=== PATIENT | male | born 1970 | race Caucasian/White ===

== ENCOUNTER 2018-06-08 10:15 | Inpatient (IN) | payer MEDICARE ==
[~2018-06-08] VITALS: Ht 167.6 cm; Wt 169.0 kg
[2018-06-08 12:00] VITALS: BP 141/81
[2018-06-08] MEDS ORDERED: OXYC80TA25 PO (12:08)
[2018-06-08] MEDS ORDERED: HYDR8TAB27 PO (12:08)
[2018-06-08] MEDS ORDERED: DIAZ10TA4 PO (12:09)
[2018-06-08] MEDS ORDERED: HYDROmorphone 2 MG/ML, 1ML ONE ×3 (12:25→19:41)
[2018-06-08] MEDS ORDERED: LABETALOL 5MG/ML, 20ML IVPush PRN (12:30)
[2018-06-08] MEDS ORDERED: BISACODYL 10 MG SUPP PR PRN (12:30)
[2018-06-08] MEDS ORDERED: BACLOFEN 10 MG TABLET PO PRN (12:30)
[2018-06-08] MEDS ORDERED: DOCUSATE 100 MG CAPSULE PO PRN (12:30)
[2018-06-08] MEDS ORDERED: POLYETHYLENE GLYCOL 17 GM PACKET PO PRN (12:30)
[2018-06-08] MEDS ORDERED: HYDROmorphone 1 MG/ML, 1ML IV ONE (12:30)
[2018-06-08] MEDS ORDERED: hydrALAzine 20 MG/ML, 1ML IVPush PRN (12:30)
[2018-06-08] MEDS: HYDROmorphone 2 MG/ML, 1ML IVPush PRN ×7 (12:30→20:01)
[2018-06-08] MEDS ORDERED: VANCOMYCIN PER PHARMACY MC PRN (13:00)
[2018-06-08 13:26] LABS: BASOPHILS # (AUTO) 0.03 x10^3/uL (0-0.1); BASOPHILS % (AUTO) 1 % (0-1); EOSINOPHILS # (AUTO) 0.02 x10^3/uL (0-0.4); EOSINOPHILS % (AUTO) 0 % (1-7); LYMPHOCYTES # (AUTO) 1.26 x10^3/uL (1-3.4); LYMPHOCYTES % (AUTO) 26 % (22-44); MD NO; MEAN CORPUSCULAR HEMOGLOBIN 30.4 pg (27.5-34.5); MEAN CORPUSCULAR HGB CONC 34.7 g/dL (33.2-36.2); MEAN CORPUSCULAR VOLUME 87.7 fL (81-97); MEAN PLATELET VOLUME 8.2 fL (7.4-10.4); MONOCYTES % (AUTO) 11 % (2-9); NEUTROPHILS # (AUTO) 2.97 x10^3/uL (1.8-6.8); NEUTROPHILS % (AUTO) 62 % (42-75); PLATELET COUNT 178 x10^3/uL (130-400); RED BLOOD COUNT 4.45 x10^6/uL (4.38-5.82); RED CELL DISTRIBUTION WIDTH 13.1 % (9.4-14.8)
[2018-06-08] MEDS ORDERED: PHARMACOKINETIC MONITORING MC PRN (13:30)
[2018-06-08] MEDS ORDERED: PHARMACOKINETIC CONSULTATION MC ONE (13:30)
[2018-06-08 13:37] LABS: INTERNATIONAL NORMALIZED RATIO 1.05 (0.93-1.1); PROTHROMBIN TIME 11.1 Seconds (9.6-11.5)
[2018-06-08 13:39] LABS: ANION GAP 10 mmol/L (5-15); CHLORIDE 105 mmol/L (98-107); CREATININE 0.73 mg/dL (0.7-1.3)
[2018-06-08 13:48] LABS: THYROID STIMULATING HORMONE 0.854 mIU/L (0.358-3.740)
[2018-06-08] MEDS: SODIUM CHLORIDE 0.9% 1,000 ML IV SCH (13:54)
[2018-06-08] MEDS: PIPERACILLIN/TAZO/PMX 3.375GM 50 ML IV SCH ×2 (15:21→23:22)
[2018-06-08] MEDS: VANCOMYCIN 1,500 MG in SODIUM CHLORIDE 0.9% 250 ML IV SCH (16:15)
[2018-06-08] MEDS ORDERED: HYDROmorphone PCA 30 MG/30 ML IV PRN ×3 (17:00→21:00)
[2018-06-08] MEDS ORDERED: FENTANYL PF 250 MCG/5ML ONE ×2 (17:02→19:19)
[2018-06-08] MEDS ORDERED: METOCLOPRAMIDE 5 MG/ML, 2ML ONE (17:40)
[2018-06-08] MEDS ORDERED: hydrALAzine 20 MG/ML, 1ML IV PRN (18:30)
[2018-06-08] MEDS ORDERED: DIAZEPAM 5 MG/ML, 2ML IVPush PRN (18:30)
[2018-06-08] MEDS ORDERED: LORazepam 2 MG/ML, 1ML IVPush PRN (18:30)
[2018-06-08] MEDS ORDERED: LABETALOL 5MG/ML, 20ML IV PRN (18:30)
[2018-06-08] MEDS ORDERED: OXYcodone 5 MG/5 ML ORAL.SOL UDC PO PRN (18:30)
[2018-06-08] MEDS ORDERED: ONDANSETRON 2MG/ML, 2ML IV PRN (18:30)
[2018-06-08] MEDS ORDERED: PROMETHAZINE 25 MG/ML, 1ML IM PRN (18:30)
[2018-06-08] MEDS ORDERED: MEPERIDINE/PF 25MG/0.5ML IVPush PRN (18:30)
[2018-06-08] MEDS ORDERED: PROPOFOL 10 MG/ML, 20ML ONE (18:49)
[2018-06-08] MEDS ORDERED: ROCURONIUM 10MG/ML,5ML ONE (18:49)
[2018-06-08] MEDS ORDERED: PHENYLEPHRINE 10 MG/ML ONE (18:49)
[2018-06-08] MEDS ORDERED: ONDANSETRON 2MG/ML, 2ML ONE (18:49)
[2018-06-08 18:54] LABS: HEMOGLOBIN A1C 5.2 % (4.2-6.3)
[2018-06-08] MEDS ORDERED: FENTANYL PF 100 MCG/2ML ONE ×2 (19:41→20:02)
[2018-06-08] MEDS ORDERED: OXYcodone 5 MG/5 ML ORAL.SOL UDC ONE (19:42)
[2018-06-08] MEDS: FENTANYL PF 100 MCG/2ML IV PRN ×3 (19:46→20:04)
[2018-06-08] MEDS ORDERED: LORazepam 2 MG/ML, 1ML ONE (19:56)
[2018-06-08 21:15] VITALS: BP 104/79
[2018-06-08] MEDS: GABAPENTIN 300 MG CAPSULE PO PRN (21:33)
[2018-06-09 00:17] VITALS: BP 119/50
[2018-06-09 03:26] VITALS: BP 125/54
[2018-06-09] MEDS: PIPERACILLIN/TAZO/PMX 3.375GM 50 ML IV SCH ×4 (04:32→23:08)
[2018-06-09] MEDS: SODIUM CHLORIDE 0.9% 1,000 ML IV SCH ×2 (04:32→17:00)
[2018-06-09 05:59] LABS: BASOPHILS # (AUTO) 0.06 x10^3/uL (0-0.1); BASOPHILS % (AUTO) 1 % (0-1); EOSINOPHILS # (AUTO) 0.05 x10^3/uL (0-0.4); EOSINOPHILS % (AUTO) 1 % (1-7); LYMPHOCYTES # (AUTO) 1.04 x10^3/uL (1-3.4); LYMPHOCYTES % (AUTO) 19 % (22-44); MD NO; MEAN CORPUSCULAR HEMOGLOBIN 30.3 pg (27.5-34.5); MEAN CORPUSCULAR HGB CONC 34.5 g/dL (33.2-36.2); MEAN CORPUSCULAR VOLUME 87.7 fL (81-97); MEAN PLATELET VOLUME 7.9 fL (7.4-10.4); MONOCYTES # (AUTO) 0.28 x10^3/uL (0.2-0.8); MONOCYTES % (AUTO) 5 % (2-9); NEUTROPHILS # (AUTO) 4.13 x10^3/uL (1.8-6.8); NEUTROPHILS % (AUTO) 74 % (42-75); PLATELET COUNT 148 x10^3/uL (130-400); RED BLOOD COUNT 4.01 x10^6/uL (4.38-5.82); RED CELL DISTRIBUTION WIDTH 13.6 % (9.4-14.8)
[2018-06-09 06:10] LABS: ANION GAP 11 mmol/L (5-15); CHLORIDE 105 mmol/L (98-107)
[2018-06-09 06:13] LABS: CALCIUM 7.3 mg/dL (8.5-10.1); CREATININE 0.71 mg/dL (0.7-1.3)
[2018-06-09] MEDS: VANCOMYCIN 1,500 MG in SODIUM CHLORIDE 0.9% 250 ML IV SCH (07:43)
[2018-06-09] MEDS: HEPARIN 5,000 UNITS/ML, 1ML SQ SCH ×2 (09:42→17:55)
[2018-06-09 10:26] VITALS: BP 90/61
[2018-06-09 12:58] LABS: CULTURE INDICATED? NO; MICROSCOPIC NOT IND
[2018-06-09 14:28] VITALS: BP 100/63
[2018-06-09] MEDS ORDERED: DIAZEPAM 5 MG TABLET ONE (14:59)
[2018-06-09] MEDS: DIAZEPAM 10 MG TABLET PO PRN (15:00)
[2018-06-09] MEDS ORDERED: HYDROmorphone 2MG TABLET PO PRN (18:00)
[2018-06-09] MEDS: HYDROmorphone 2MG TABLET PO SCH (18:23)
[2018-06-09 19:21] VITALS: BP 110/72
[2018-06-09] MEDS ORDERED: OxyconTIN ER 40 MG TAB.ER PO SCH (21:00)
[2018-06-09] MEDS ORDERED: HYDROmorphone 4MG TABLET PO SCH ×2 (21:00)
[2018-06-09] MEDS ORDERED: OxyconTIN ER 20 MG TAB.ER ONE (21:06)
[2018-06-09] MEDS: OxyconTIN ER 40 MG TAB.ER PO SCH (21:10)
[2018-06-09] MEDS: ACETAMINOPHEN 325 MG TABLET PO PRN (23:07)
[2018-06-09] MEDS: HYDROmorphone 2 MG/ML, 1ML IVPush PRN (23:07)
[2018-06-10 00:13] VITALS: BP 97/56
[2018-06-10] MEDS: VANCOMYCIN 1,500 MG in SODIUM CHLORIDE 0.9% 250 ML IV SCH (01:38)
[2018-06-10] MEDS: SODIUM CHLORIDE 0.9% 1,000 ML IV SCH ×3 (01:38→17:00)
[2018-06-10] MEDS: HEPARIN 5,000 UNITS/ML, 1ML SQ SCH ×3 (01:39→17:35)
[2018-06-10] MEDS ORDERED: DIAZEPAM 5 MG TABLET ONE ×3 (04:11→19:50)
[2018-06-10] MEDS: DIAZEPAM 10 MG TABLET PO PRN ×2 (04:13→19:52)
[2018-06-10] MEDS ORDERED: OxyconTIN ER 20 MG TAB.ER ONE (04:47)
[2018-06-10] MEDS: PIPERACILLIN/TAZO/PMX 3.375GM 50 ML IV SCH ×4 (04:48→22:48)
[2018-06-10] MEDS: OxyconTIN ER 40 MG TAB.ER PO SCH (04:49)
[2018-06-10] MEDS: HYDROmorphone 2 MG/ML, 1ML IVPush PRN ×2 (04:53→05:30)
[2018-06-10 05:33] LABS: ALBUMIN 2.9 g/dL (3.4-5.0); ANION GAP 9 mmol/L (5-15); CALCIUM 7.5 mg/dL (8.5-10.1); CHLORIDE 107 mmol/L (98-107); CREATININE 0.82 mg/dL (0.7-1.3)
[2018-06-10] MEDS: HYDROmorphone 2MG TABLET PO SCH (06:11)
[2018-06-10] MEDS ORDERED: POTASSIUM CHLORIDE 10% 20 MEQ/15 ML UDC PO ONE (07:00)
[2018-06-10] MEDS ORDERED: POTASSIUM CHLORIDE 20 MEQ TAB.ER.PRT ONE (08:18)
[2018-06-10 08:39] VITALS: BP 102/70
[2018-06-10] MEDS ORDERED: HYDROmorphone 2 MG/ML, 1ML IV ONE ×2 (09:30→12:00)
[2018-06-10] MEDS ORDERED: HYDROmorphone PCA 30 MG/30 ML IV PRN ×2 (10:30→14:50)
[2018-06-10] MEDS ORDERED: DIAZEPAM 5 MG TABLET PO ONE (12:00)
[2018-06-10] MEDS: VANCOMYCIN 1,200 MG in SODIUM CHLORIDE 0.9% 250 ML IV SCH (13:16)
[2018-06-10 19:25] VITALS: BP 99/63
[2018-06-11] MEDS: SODIUM CHLORIDE 0.9% 1,000 ML IV SCH ×3 (00:58→21:58)
[2018-06-11] MEDS: VANCOMYCIN 1,200 MG in SODIUM CHLORIDE 0.9% 250 ML IV SCH (00:58)
[2018-06-11] MEDS: HEPARIN 5,000 UNITS/ML, 1ML SQ SCH ×3 (00:58→17:25)
[2018-06-11 02:00] VITALS: BP 99/66
[2018-06-11] MEDS: PIPERACILLIN/TAZO/PMX 3.375GM 50 ML IV SCH ×4 (04:54→21:24)
[2018-06-11 05:27] LABS: ALBUMIN 2.5 g/dL (3.4-5.0); ANION GAP 6 mmol/L (5-15); CALCIUM 7.1 mg/dL (8.5-10.1); CHLORIDE 108 mmol/L (98-107)
[2018-06-11 05:28] LABS: CREATININE 0.61 mg/dL (0.7-1.3)
[2018-06-11 05:31] LABS: BASOPHILS # (AUTO) 0.03 x10^3/uL (0-0.1); BASOPHILS % (AUTO) 1 % (0-1); EOSINOPHILS # (AUTO) 0.14 x10^3/uL (0-0.4); EOSINOPHILS % (AUTO) 3 % (1-7); LYMPHOCYTES % (AUTO) 26 % (22-44); MD NO; MEAN CORPUSCULAR HEMOGLOBIN 30.6 pg (27.5-34.5); MEAN CORPUSCULAR HGB CONC 34.5 g/dL (33.2-36.2); MEAN CORPUSCULAR VOLUME 88.6 fL (81-97); MEAN PLATELET VOLUME 8.3 fL (7.4-10.4); MONOCYTES # (AUTO) 0.42 x10^3/uL (0.2-0.8); MONOCYTES % (AUTO) 9 % (2-9); NEUTROPHILS # (AUTO) 2.84 x10^3/uL (1.8-6.8); NEUTROPHILS % (AUTO) 61 % (42-75); PLATELET COUNT 135 x10^3/uL (130-400); RED BLOOD COUNT 3.48 x10^6/uL (4.38-5.82); RED CELL DISTRIBUTION WIDTH 13.2 % (9.4-14.8)
[2018-06-11] MEDS ORDERED: POTASSIUM CHLORIDE 10% 40 MEQ/30 ML UDC PO ONE (06:30)
[2018-06-11 07:34] VITALS: BP 99/64
[2018-06-11 12:48] VITALS: BP 102/66
[2018-06-11] MEDS ORDERED: DIAZEPAM 5 MG TABLET ONE ×2 (13:38→21:56)
[2018-06-11] MEDS: DIAZEPAM 10 MG TABLET PO PRN ×2 (13:40→21:57)
[2018-06-11] MEDS: DAPTOMYCIN 450 MG in SODIUM CHLORIDE 0.9% 100 ML IVPB SCH (14:11)
[2018-06-11] MEDS: LACTULOSE 20 GM/30 ML UDC PO SCH ×2 (21:00→21:25)
[2018-06-11 21:18] VITALS: BP 93/58
[2018-06-11] MEDS: ACETAMINOPHEN 325 MG TABLET PO PRN (21:57)
[2018-06-12] MEDS: HEPARIN 5,000 UNITS/ML, 1ML SQ SCH ×3 (02:03→18:35)
[2018-06-12 02:07] VITALS: BP 94/50
[2018-06-12] MEDS: ACETAMINOPHEN 325 MG TABLET PO PRN ×2 (04:22→19:46)
[2018-06-12] MEDS: PIPERACILLIN/TAZO/PMX 3.375GM 50 ML IV SCH ×4 (04:38→22:51)
[2018-06-12 05:09] LABS: BASOPHILS # (AUTO) 0.02 x10^3/uL (0-0.1); BASOPHILS % (AUTO) 0 % (0-1); EOSINOPHILS # (AUTO) 0.18 x10^3/uL (0-0.4); EOSINOPHILS % (AUTO) 4 % (1-7); LYMPHOCYTES # (AUTO) 1.35 x10^3/uL (1-3.4); LYMPHOCYTES % (AUTO) 30 % (22-44); MD NO; MEAN CORPUSCULAR HEMOGLOBIN 30.5 pg (27.5-34.5); MEAN CORPUSCULAR HGB CONC 34.5 g/dL (33.2-36.2); MEAN CORPUSCULAR VOLUME 88.4 fL (81-97); MEAN PLATELET VOLUME 8.6 fL (7.4-10.4); MONOCYTES # (AUTO) 0.33 x10^3/uL (0.2-0.8); MONOCYTES % (AUTO) 7 % (2-9); NEUTROPHILS # (AUTO) 2.66 x10^3/uL (1.8-6.8); NEUTROPHILS % (AUTO) 59 % (42-75); PLATELET COUNT 158 x10^3/uL (130-400); RED BLOOD COUNT 3.53 x10^6/uL (4.38-5.82); RED CELL DISTRIBUTION WIDTH 13.6 % (9.4-14.8)
[2018-06-12 05:14] LABS: ALBUMIN 2.6 g/dL (3.4-5.0); ANION GAP 8 mmol/L (5-15); CALCIUM 7.7 mg/dL (8.5-10.1); CHLORIDE 110 mmol/L (98-107)
[2018-06-12 05:21] LABS: ALANINE AMINOTRANSFERASE 42 U/L (12-78); ALKALINE PHOSPHATASE 107 U/L (45-117); BILIRUBIN,TOTAL 0.5 mg/dL (0.2-1.0); CREATINE KINASE, TOTAL 195 U/L (39-308); CREATININE 0.58 mg/dL (0.7-1.3); TOTAL PROTEIN 5.9 g/dL (6.4-8.2)
[2018-06-12 05:39] LABS: HCT (SEDRATE) 31.2 % (39.2-51.8)
[2018-06-12] MEDS: SODIUM CHLORIDE 0.9% 1,000 ML IV SCH ×2 (06:27→13:37)
[2018-06-12 07:09] VITALS: BP 105/61
[2018-06-12] MEDS: LACTULOSE 20 GM/30 ML UDC PO SCH ×3 (09:00→21:00)
[2018-06-12] MEDS ORDERED: DIAZEPAM 5 MG TABLET ONE ×2 (09:31→21:37)
[2018-06-12] MEDS: DIAZEPAM 10 MG TABLET PO PRN ×2 (10:56→21:40)
[2018-06-12] MEDS: DAPTOMYCIN 450 MG in SODIUM CHLORIDE 0.9% 100 ML IVPB SCH (13:35)
[2018-06-12 13:42] VITALS: BP 121/68
[2018-06-12 18:42] VITALS: BP 100/50
[2018-06-13] MEDS: HEPARIN 5,000 UNITS/ML, 1ML SQ SCH ×3 (03:00→18:14)
[2018-06-13 03:11] VITALS: BP 95/53
[2018-06-13] MEDS: GABAPENTIN 300 MG CAPSULE PO PRN (04:32)
[2018-06-13] MEDS: PIPERACILLIN/TAZO/PMX 3.375GM 50 ML IV SCH (05:15)
[2018-06-13 06:02] LABS: ANION GAP 6 mmol/L (5-15); CALCIUM 7.7 mg/dL (8.5-10.1); CHLORIDE 110 mmol/L (98-107)
[2018-06-13 06:07] LABS: BASOPHILS # (AUTO) 0.01 x10^3/uL (0-0.1); BASOPHILS % (AUTO) 0 % (0-1); EOSINOPHILS # (AUTO) 0.08 x10^3/uL (0-0.4); EOSINOPHILS % (AUTO) 3 % (1-7); LYMPHOCYTES # (AUTO) 0.91 x10^3/uL (1-3.4); LYMPHOCYTES % (AUTO) 30 % (22-44); MD NO; MEAN CORPUSCULAR VOLUME 88.4 fL (81-97); MEAN PLATELET VOLUME 8.3 fL (7.4-10.4); MONOCYTES # (AUTO) 0.29 x10^3/uL (0.2-0.8); MONOCYTES % (AUTO) 10 % (2-9); NEUTROPHILS # (AUTO) 1.78 x10^3/uL (1.8-6.8); NEUTROPHILS % (AUTO) 58 % (42-75); PLATELET COUNT 213 x10^3/uL (130-400); RED BLOOD COUNT 3.28 x10^6/uL (4.38-5.82); RED CELL DISTRIBUTION WIDTH 13.6 % (9.4-14.8)
[2018-06-13 06:19] VITALS: BP 107/65
[2018-06-13] MEDS: LACTULOSE 20 GM/30 ML UDC PO SCH ×2 (08:15→21:00)
[2018-06-13] MEDS: ERTAPENEM 1 GM in SODIUM CHLORIDE 0.9% 50 ML IV SCH (10:45)
[2018-06-13 12:01] VITALS: BP 93/56
[2018-06-13] MEDS: DAPTOMYCIN 450 MG in SODIUM CHLORIDE 0.9% 100 ML IVPB SCH (13:55)
[2018-06-13] MEDS: HYDROmorphone 2MG TABLET PO SCH (15:27)
[2018-06-13] MEDS ORDERED: OxyconTIN ER 20 MG TAB.ER ONE ×2 (16:04→20:55)
[2018-06-13] MEDS: OxyconTIN ER 40 MG TAB.ER PO SCH ×2 (16:06→20:59)
[2018-06-13] MEDS ORDERED: DIAZEPAM 5 MG TABLET ONE (18:21)
[2018-06-13] MEDS: OXYcodone IR 30 MG TABLET PO PRN (18:24)
[2018-06-13] MEDS: HYDROmorphone 2 MG/ML, 1ML IVPush PRN ×2 (18:24→21:43)
[2018-06-13] MEDS: DIAZEPAM 10 MG TABLET PO PRN (18:24)
[2018-06-13] MEDS ORDERED: OxyconTIN ER 40 MG TAB.ER PO SCH (21:00)
[2018-06-13 21:10] VITALS: BP 137/41
[2018-06-14] MEDS ORDERED: DIAZEPAM 5 MG TABLET ONE ×3 (00:23→18:25)
[2018-06-14] MEDS: HYDROmorphone 2MG TABLET PO SCH ×3 (00:26→23:07)
[2018-06-14] MEDS: DIAZEPAM 10 MG TABLET PO PRN ×2 (00:26→18:26)
[2018-06-14] MEDS ORDERED: FAMOTIDINE 20 MG TABLET ONE (00:37)
[2018-06-14] MEDS: FAMOTIDINE 20 MG TABLET PO SCH ×3 (00:41→23:06)
[2018-06-14] MEDS ORDERED: CALCIUM CARBONATE 500 MG TAB.CHEW PO PRN (01:00)
[2018-06-14] MEDS ORDERED: OXYcodone IR 5MG TABLET ONE (01:51)
[2018-06-14] MEDS: HEPARIN 5,000 UNITS/ML, 1ML SQ SCH ×3 (01:55→18:22)
[2018-06-14] MEDS: HYDROmorphone 2 MG/ML, 1ML IVPush PRN ×6 (01:55→19:40)
[2018-06-14] MEDS: OXYcodone IR 30 MG TABLET PO PRN (01:56)
[2018-06-14 04:30] VITALS: BP 121/52
[2018-06-14] MEDS ORDERED: OxyconTIN ER 20 MG TAB.ER ONE ×3 (05:01→23:01)
[2018-06-14] MEDS: OxyconTIN ER 40 MG TAB.ER PO SCH ×4 (05:05→22:00)
[2018-06-14 08:00] VITALS: BP 91/47
[2018-06-14] MEDS ORDERED: POTASSIUM CHLORIDE 20 MEQ TAB.ER.PRT PO ONE (08:30)
[2018-06-14] MEDS: LACTULOSE 20 GM/30 ML UDC PO SCH ×3 (09:00→23:06)
[2018-06-14] MEDS: ERTAPENEM 1 GM in SODIUM CHLORIDE 0.9% 50 ML IV SCH (10:59)
[2018-06-14] MEDS: ACETAMINOPHEN 325 MG TABLET PO PRN (12:51)
[2018-06-14 13:48] VITALS: BP 96/58
[2018-06-14] MEDS: DAPTOMYCIN 450 MG in SODIUM CHLORIDE 0.9% 100 ML IVPB SCH (14:12)
[2018-06-14 19:50] VITALS: BP 91/52
[2018-06-15] MEDS: HYDROmorphone 2 MG/ML, 1ML IVPush PRN ×5 (00:57→22:06)
[2018-06-15 01:15] VITALS: BP 125/75
[2018-06-15] MEDS ORDERED: DIAZEPAM 5 MG TABLET ONE ×2 (05:22→18:45)
[2018-06-15] MEDS ORDERED: OxyconTIN ER 20 MG TAB.ER ONE ×3 (05:22→22:02)
[2018-06-15] MEDS: OxyconTIN ER 40 MG TAB.ER PO SCH ×3 (05:28→22:05)
[2018-06-15] MEDS: DIAZEPAM 10 MG TABLET PO PRN ×2 (05:28→18:48)
[2018-06-15 07:24] LABS: ANION GAP 4 mmol/L (5-15); CHLORIDE 110 mmol/L (98-107); CREATININE 0.64 mg/dL (0.7-1.3)
[2018-06-15 07:31] LABS: BASOPHILS # (AUTO) 0.03 x10^3/uL (0-0.1); BASOPHILS % (AUTO) 1 % (0-1); EOSINOPHILS # (AUTO) 0.05 x10^3/uL (0-0.4); EOSINOPHILS % (AUTO) 1 % (1-7); LYMPHOCYTES # (AUTO) 1.51 x10^3/uL (1-3.4); LYMPHOCYTES % (AUTO) 39 % (22-44); MD NO; MEAN CORPUSCULAR HEMOGLOBIN 30.5 pg (27.5-34.5); MEAN CORPUSCULAR HGB CONC 34.6 g/dL (33.2-36.2); MEAN CORPUSCULAR VOLUME 87.9 fL (81-97); MEAN PLATELET VOLUME 7.4 fL (7.4-10.4); MONOCYTES # (AUTO) 0.42 x10^3/uL (0.2-0.8); MONOCYTES % (AUTO) 11 % (2-9); NEUTROPHILS # (AUTO) 1.91 x10^3/uL (1.8-6.8); NEUTROPHILS % (AUTO) 49 % (42-75); PLATELET COUNT 343 x10^3/uL (130-400); RED CELL DISTRIBUTION WIDTH 13.9 % (9.4-14.8)
[2018-06-15 08:00] VITALS: BP 122/61
[2018-06-15] MEDS: HYDROmorphone 2MG TABLET PO SCH ×2 (08:47→22:06)
[2018-06-15] MEDS: HEPARIN 5,000 UNITS/ML, 1ML SQ SCH ×3 (08:47→15:43)
[2018-06-15] MEDS: LACTULOSE 20 GM/30 ML UDC PO SCH ×3 (08:47→21:00)
[2018-06-15] MEDS: FAMOTIDINE 20 MG TABLET PO SCH ×2 (08:47→22:06)
[2018-06-15] MEDS: ERTAPENEM 1 GM in SODIUM CHLORIDE 0.9% 50 ML IV SCH (11:00)
[2018-06-15] MEDS: LACTOBACILLUS CHEW TABLET PO SCH ×2 (11:42→22:05)
[2018-06-15] MEDS: DAPTOMYCIN 450 MG in SODIUM CHLORIDE 0.9% 100 ML IVPB SCH (13:56)
[2018-06-15 15:31] VITALS: BP 126/72
[2018-06-15 18:46] VITALS: BP 95/60
[2018-06-15] MEDS: OXYcodone IR 30 MG TABLET PO PRN (18:48)
[2018-06-16 01:13] VITALS: BP 99/61
[2018-06-16] MEDS: OXYcodone IR 30 MG TABLET PO PRN ×3 (01:24→23:18)
[2018-06-16] MEDS: OxyconTIN ER 40 MG TAB.ER PO SCH ×3 (06:00→21:22)
[2018-06-16] MEDS ORDERED: OxyconTIN ER 20 MG TAB.ER ONE ×3 (06:09→21:19)
[2018-06-16] MEDS: HYDROmorphone 2 MG/ML, 1ML IVPush PRN ×3 (06:13→21:22)
[2018-06-16 06:29] VITALS: BP 90/58
[2018-06-16] MEDS: LACTULOSE 20 GM/30 ML UDC PO SCH ×2 (09:10→19:39)
[2018-06-16] MEDS: FAMOTIDINE 20 MG TABLET PO SCH ×2 (09:10→21:23)
[2018-06-16] MEDS: LACTOBACILLUS CHEW TABLET PO SCH ×2 (09:10→21:21)
[2018-06-16] MEDS: HYDROmorphone 2MG TABLET PO SCH ×2 (09:10→21:22)
[2018-06-16] MEDS: HEPARIN 5,000 UNITS/ML, 1ML SQ SCH ×3 (09:11→16:07)
[2018-06-16] MEDS: ERTAPENEM 1 GM in SODIUM CHLORIDE 0.9% 50 ML IV SCH (10:59)
[2018-06-16 12:55] VITALS: BP 92/56
[2018-06-16] MEDS: DAPTOMYCIN 450 MG in SODIUM CHLORIDE 0.9% 100 ML IVPB SCH (14:14)
[2018-06-16] MEDS ORDERED: DIAZEPAM 5 MG TABLET ONE ×2 (16:02→23:15)
[2018-06-16] MEDS: DIAZEPAM 10 MG TABLET PO PRN ×2 (16:06→23:18)
[2018-06-16 21:00] VITALS: BP 101/63
[2018-06-17 01:51] VITALS: BP 95/62
[2018-06-17] MEDS: HYDROmorphone 2 MG/ML, 1ML IVPush PRN ×4 (03:09→22:57)
[2018-06-17] MEDS ORDERED: OxyconTIN ER 20 MG TAB.ER ONE ×3 (05:46→22:06)
[2018-06-17] MEDS: OxyconTIN ER 40 MG TAB.ER PO SCH ×3 (05:49→22:09)
[2018-06-17] MEDS: HEPARIN 5,000 UNITS/ML, 1ML SQ SCH ×3 (05:50→22:09)
[2018-06-17 06:48] VITALS: BP 100/65
[2018-06-17] MEDS: LACTULOSE 20 GM/30 ML UDC PO SCH ×3 (08:28→21:00)
[2018-06-17] MEDS: LACTOBACILLUS CHEW TABLET PO SCH ×2 (08:28→21:07)
[2018-06-17] MEDS: FAMOTIDINE 20 MG TABLET PO SCH ×2 (08:29→21:07)
[2018-06-17] MEDS: HYDROmorphone 2MG TABLET PO SCH ×2 (08:29→21:07)
[2018-06-17] MEDS: OXYcodone IR 30 MG TABLET PO PRN ×2 (10:15→19:38)
[2018-06-17] MEDS: ERTAPENEM 1 GM in SODIUM CHLORIDE 0.9% 50 ML IV SCH (11:27)
[2018-06-17] MEDS: DAPTOMYCIN 450 MG in SODIUM CHLORIDE 0.9% 100 ML IVPB SCH (12:44)
[2018-06-17 12:58] VITALS: BP 91/53
[2018-06-17 18:56] VITALS: BP 92/57
[2018-06-17] MEDS ORDERED: DIAZEPAM 5 MG TABLET ONE (23:19)
[2018-06-17] MEDS: DIAZEPAM 10 MG TABLET PO PRN (23:21)
[2018-06-18 03:59] VITALS: BP 93/63
[2018-06-18] MEDS ORDERED: OxyconTIN ER 20 MG TAB.ER ONE ×3 (05:43→23:09)
[2018-06-18] MEDS: OxyconTIN ER 40 MG TAB.ER PO SCH ×3 (05:49→23:15)
[2018-06-18] MEDS: HEPARIN 5,000 UNITS/ML, 1ML SQ SCH ×3 (05:50→23:05)
[2018-06-18] MEDS: HYDROmorphone 2 MG/ML, 1ML IVPush PRN ×3 (05:59→19:22)
[2018-06-18] MEDS: OXYcodone IR 30 MG TABLET PO PRN (06:41)
[2018-06-18 06:49] VITALS: BP 96/61
[2018-06-18] MEDS: LACTULOSE 20 GM/30 ML UDC PO SCH ×2 (09:00→21:00)
[2018-06-18] MEDS: FAMOTIDINE 20 MG TABLET PO SCH ×2 (09:06→21:26)
[2018-06-18] MEDS: HYDROmorphone 2MG TABLET PO SCH ×2 (09:06→21:00)
[2018-06-18] MEDS: LACTOBACILLUS CHEW TABLET PO SCH ×2 (09:06→21:26)
[2018-06-18] MEDS: ERTAPENEM 1 GM in SODIUM CHLORIDE 0.9% 50 ML IV SCH (10:49)
[2018-06-18 12:53] VITALS: BP 96/54
[2018-06-18] MEDS: DAPTOMYCIN 450 MG in SODIUM CHLORIDE 0.9% 100 ML IVPB SCH (15:11)
[2018-06-18 19:13] VITALS: BP 102/69
[2018-06-19 00:17] VITALS: BP 92/58
[2018-06-19 03:32] VITALS: BP 97/58
[2018-06-19] MEDS: HYDROmorphone 2 MG/ML, 1ML IVPush PRN ×2 (03:37→10:48)
[2018-06-19 05:05] VITALS: BP 110/63
[2018-06-19] MEDS ORDERED: DIAZEPAM 5 MG TABLET ONE (05:07)
[2018-06-19] MEDS: DIAZEPAM 10 MG TABLET PO PRN (05:10)
[2018-06-19 05:22] LABS: BASOPHILS # (AUTO) 0.15 x10^3/uL (0-0.1); BASOPHILS % (AUTO) 2 % (0-1); EOSINOPHILS # (AUTO) 0.27 x10^3/uL (0-0.4); EOSINOPHILS % (AUTO) 4 % (1-7); LYMPHOCYTES # (AUTO) 2.94 x10^3/uL (1-3.4); LYMPHOCYTES % (AUTO) 43 % (22-44); MD NO; MEAN CORPUSCULAR HEMOGLOBIN 29.9 pg (27.5-34.5); MEAN CORPUSCULAR HGB CONC 33.7 g/dL (33.2-36.2); MEAN CORPUSCULAR VOLUME 88.7 fL (81-97); MEAN PLATELET VOLUME 7.2 fL (7.4-10.4); MONOCYTES # (AUTO) 0.53 x10^3/uL (0.2-0.8); MONOCYTES % (AUTO) 8 % (2-9); NEUTROPHILS # (AUTO) 2.98 x10^3/uL (1.8-6.8); NEUTROPHILS % (AUTO) 43 % (42-75); PLATELET COUNT 510 x10^3/uL (130-400); RED BLOOD COUNT 3.58 x10^6/uL (4.38-5.82)
[2018-06-19 05:25] LABS: CHLORIDE 107 mmol/L (98-107)
[2018-06-19 05:39] LABS: ALANINE AMINOTRANSFERASE 82 U/L (12-78); ALBUMIN 2.5 g/dL (3.4-5.0); ALKALINE PHOSPHATASE 133 U/L (45-117); ANION GAP 6 mmol/L (5-15); BILIRUBIN,TOTAL 0.2 mg/dL (0.2-1.0); CALCIUM 7.5 mg/dL (8.5-10.1); CREATINE KINASE, TOTAL 26 U/L (39-308); CREATININE 0.69 mg/dL (0.7-1.3); TOTAL PROTEIN 6.6 g/dL (6.4-8.2)
[2018-06-19] MEDS ORDERED: OxyconTIN ER 20 MG TAB.ER ONE ×2 (06:39→14:15)
[2018-06-19] MEDS: HEPARIN 5,000 UNITS/ML, 1ML SQ SCH ×2 (06:42→14:19)
[2018-06-19] MEDS: OxyconTIN ER 40 MG TAB.ER PO SCH ×2 (06:48→14:00)
[2018-06-19 06:52] VITALS: BP 98/58
[2018-06-19] MEDS: LACTULOSE 20 GM/30 ML UDC PO SCH (09:00)
[2018-06-19] MEDS: FAMOTIDINE 20 MG TABLET PO SCH (09:43)
[2018-06-19] MEDS: LACTOBACILLUS CHEW TABLET PO SCH (09:43)
[2018-06-19] MEDS: HYDROmorphone 2MG TABLET PO SCH (09:43)
[2018-06-19] MEDS: ERTAPENEM 1 GM in SODIUM CHLORIDE 0.9% 50 ML IV SCH (10:48)
[2018-06-19 14:16] VITALS: BP 103/64
[2018-06-19] MEDS: DAPTOMYCIN 450 MG in SODIUM CHLORIDE 0.9% 100 ML IVPB SCH (15:00)
[2018-06-19] MEDS ORDERED: Ertapenem IVPB (15:18)
[2018-06-19] MEDS ORDERED: Daptomycin IVPB (15:18)
== END 2018-06-19 16:23 | disposition home health service (06) | DRG 853 ==
LOC: 4NOR 11:25 → DCLOUNGE 06-19 16:14
PROVIDERS: ADMIT Internal Medicine; ATTEND Internal Medicine
PROC: 0QB60ZZ Excision of Right Upper Femur, Open Approach (ICD-10-PCS; principal; 2018-06-08 17:30)
PROC: 02HV33Z Insertion of Infusion Device into Superior Vena Cava, Percutaneous Approach (ICD-10-PCS; 2018-06-11)
PROC: B5181ZA Fluoroscopy of Superior Vena Cava using Low Osmolar Contrast, Guidance (ICD-10-PCS; 2018-06-11)
PROC: B548ZZA Ultrasonography of Superior Vena Cava, Guidance (ICD-10-PCS; 2018-06-11)
DX: A41.9 Sepsis, unspecified organism (principal); G82.50 Quadriplegia, unspecified; M86.8X8 Other osteomyelitis, other site; L02.415 Cutaneous abscess of right lower limb; K92.1 Melena; N31.9 Neuromuscular dysfunction of bladder, unspecified; Z87.891 Personal history of nicotine dependence; G89.29 Other chronic pain; K59.09 Other constipation; M48.00 Spinal stenosis, site unspecified; Z66 Do not resuscitate; Z80.0 Family history of malignant neoplasm of digestive organs; Z86.14 Personal history of Methicillin resistant Staphylococcus aureus infection; Z89.512 Acquired absence of left leg below knee; Z98.1 Arthrodesis status; F11.21 Opioid dependence, in remission; Z88.2 Allergy status to sulfonamides
CPT/HCPCS: 36415; 36569; 76937; 77001; 80048; 80053; 81003; 82040; 82550; 83036; 83605; 83735; 84100; 84443; 85014; 85018; 85025; 85610; 85651; 86140; 86141; 87015; 87040; 87070; 87075; 87102; 87116; 87176; 87205; 87206; G0378; J0878; J1170; J1335; J1644; J2405; J2543; J2704; J3010; J3360; J3370; C1751; J2060; J2370; J2765; J7030; J7050

== ENCOUNTER 2019-09-10 18:53 | Inpatient (IN) | payer MEDICARE, OTHER ==
[~2019-09-10] VITALS: Ht 167.6 cm; Wt 74.1 kg
[~2019-09-10 18:53] MED LIST: DIAZ10TA4 PO; Daptomycin IVPB; Ertapenem IVPB; HYDR8TAB27 PO; OXYC80TA25 PO
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
[2019-09-10] MEDS ORDERED: PIPERACILLIN/TAZO/PMX 3.375GM 50 ML IVPB ONE (19:00)
[2019-09-10] MEDS ORDERED: SODIUM CHLORIDE FLUSH 10ML SYR IVF ONE (19:00)
[2019-09-10] MEDS ORDERED: VANCOMYCIN PER PHARMACY MC ONE (19:00)
[2019-09-10] MEDS ORDERED: SODIUM CHLORIDE 0.9% 1,000 ML IV ONE (19:00)
[2019-09-10 19:28] LABS: BASOPHILS # (AUTO) 0.02 x10^3/uL (0-0.1); BASOPHILS % (AUTO) 0 % (0-1); EOSINOPHILS # (AUTO) 0.08 x10^3/uL (0-0.4); EOSINOPHILS % (AUTO) 1 % (1-7); LYMPHOCYTES # (AUTO) 1.25 x10^3/uL (1-3.4); LYMPHOCYTES % (AUTO) 12 % (22-44); MD NO; MEAN CORPUSCULAR HEMOGLOBIN 29.7 pg (27.5-34.5); MEAN CORPUSCULAR HGB CONC 33.9 g/dL (33.2-36.2); MEAN CORPUSCULAR VOLUME 87.5 fL (81-97); MONOCYTES # (AUTO) 0.57 x10^3/uL (0.2-0.8); MONOCYTES % (AUTO) 6 % (2-9); NEUTROPHILS # (AUTO) 8.14 x10^3/uL (1.8-6.8); NEUTROPHILS % (AUTO) 81 % (42-75); PLATELET COUNT 250 x10^3/uL (130-400); RED BLOOD COUNT 4.34 x10^6/uL (4.38-5.82); RED CELL DISTRIBUTION WIDTH 13.7 % (9.4-14.8)
[2019-09-10] MEDS ORDERED: HYDROmorphone 1 MG/ML, 1ML INJ ONE ×2 (19:34→20:59)
[2019-09-10] MEDS ORDERED: PIPERACILLIN/TAZO/PMX 3.375GM 50 ML ONE (19:34)
[2019-09-10 19:35] LABS: ALBUMIN 3.3 g/dL (3.4-5.0); ANION GAP 7 mmol/L (5-15); CALCIUM 8.5 mg/dL (8.5-10.1); CHLORIDE 111 mmol/L (98-107); CREATININE 0.57 mg/dL (0.7-1.3)
[2019-09-10] MEDS: HYDROmorphone 1 MG/ML, 1ML INJ IVPush PRN ×2 (19:49→21:00)
--- NOTE | 2019-09-10 19:50 | NUR ---
please call Rachell [phone] to update.
[2019-09-10] MEDS ORDERED: PHARMACOKINETIC MONITORING MC PRN ×2 (20:30)
[2019-09-10] MEDS ORDERED: PHARMACOKINETIC CONSULTATION MC ONE (20:30)
--- NOTE | 2019-09-10 20:45 | NUR ---
Pt given meal, in bed, NAD, no needs at this time, awaiting medical bed.
[2019-09-10] MEDS ORDERED: DOCUSATE 100 MG CAPSULE PO PRN (21:30)
[2019-09-10] MEDS ORDERED: ACETAMINOPHEN 325 MG TABLET PO PRN (21:30)
[2019-09-10] MEDS ORDERED: hydrALAzine 20 MG/ML, 1ML IVPush PRN (21:30)
[2019-09-10] MEDS ORDERED: LIDODERM 5% PATCH TD PRN (21:30)
[2019-09-10] MEDS ORDERED: DIAZEPAM 10 MG TABLET PO PRN (21:30)
[2019-09-10] MEDS ORDERED: ONDANSETRON 2MG/ML, 2ML IVPush PRN (21:30)
[2019-09-10] MEDS ORDERED: OXYCODONE HCL 80 MG PO SCH (21:30)
[2019-09-10] MEDS ORDERED: VANCOMYCIN PER PHARMACY MC PRN (21:30)
[2019-09-10 21:40] VITALS: BP 117/85
[2019-09-10] MEDS: DIAZEPAM 5 MG TABLET PO PRN (22:32)
[2019-09-10] MEDS: OxyconTIN ER 40 MG TAB.ER PO SCH (23:09)
[2019-09-10] MEDS: VANCOMYCIN 1,500 MG in SODIUM CHLORIDE 0.9% 250 ML IV SCH (23:21)
[2019-09-11] MEDS ORDERED: lactulose
[2019-09-11] MEDS: HYDROmorphone 2 MG/ML, 1ML IVPush PRN ×6 (01:39→21:58)
[2019-09-11 02:03] VITALS: BP 128/77
[2019-09-11] MEDS: TEMAZEPAM 15 MG CAPSULE PO PRN (02:09)
[2019-09-11 07:09] LABS: BASOPHILS # (AUTO) 0.02 x10^3/uL (0-0.1); BASOPHILS % (AUTO) 0 % (0-1); EOSINOPHILS # (AUTO) 0.05 x10^3/uL (0-0.4); EOSINOPHILS % (AUTO) 1 % (1-7); LYMPHOCYTES # (AUTO) 1.16 x10^3/uL (1-3.4); LYMPHOCYTES % (AUTO) 19 % (22-44); MD NO; MEAN CORPUSCULAR HEMOGLOBIN 29.7 pg (27.5-34.5); MEAN CORPUSCULAR HGB CONC 33.4 g/dL (33.2-36.2); MEAN PLATELET VOLUME 7.5 fL (7.4-10.4); MONOCYTES # (AUTO) 0.58 x10^3/uL (0.2-0.8); MONOCYTES % (AUTO) 9 % (2-9); NEUTROPHILS # (AUTO) 4.35 x10^3/uL (1.8-6.8); NEUTROPHILS % (AUTO) 71 % (42-75); PLATELET COUNT 221 x10^3/uL (130-400); RED BLOOD COUNT 3.89 x10^6/uL (4.38-5.82); RED CELL DISTRIBUTION WIDTH 13.6 % (9.4-14.8)
[2019-09-11 07:15] LABS: ANION GAP 5 mmol/L (5-15); CALCIUM 8.3 mg/dL (8.5-10.1); CHLORIDE 110 mmol/L (98-107); CREATININE 0.62 mg/dL (0.7-1.3)
[2019-09-11 07:27] VITALS: BP 99/63
[2019-09-11] MEDS: NICOTINE 21 MG/24 HR PATCH.TD24 TD SCH (08:26)
[2019-09-11] MEDS: OxyconTIN ER 40 MG TAB.ER PO SCH ×4 (08:26→23:55)
[2019-09-11] MEDS: DIAZEPAM 5 MG TABLET PO PRN ×2 (08:36→16:39)
[2019-09-11] MEDS ORDERED: VANCOMYCIN 1,000 MG ONE (10:49)
[2019-09-11] MEDS ORDERED: MIDAZOLAM 1 MG/ML, 2ML ONE (10:53)
[2019-09-11] MEDS ORDERED: FENTANYL PF 250 MCG/5ML ONE (10:53)
[2019-09-11] MEDS ORDERED: DEXAMETHASONE 4 MG/ML, 1ML ONE (11:01)
[2019-09-11] MEDS ORDERED: ONDANSETRON 2MG/ML, 2ML ONE (11:01)
[2019-09-11] MEDS ORDERED: ROCURONIUM 10 MG/ML,10ML ONE (11:01)
[2019-09-11] MEDS ORDERED: PROPOFOL 10 MG/ML, 20ML ONE (11:01)
[2019-09-11] MEDS ORDERED: SUCCINYLCHOLINE 20 MG/ML, 10ML ONE (11:01)
[2019-09-11] MEDS ORDERED: CEFAZOLIN 1,000 MG ONE (11:01)
[2019-09-11] MEDS ORDERED: SUGAMMADEX 200 MG/2 ML IVPush ONE (11:01)
[2019-09-11] MEDS ORDERED: DIAZEPAM 5 MG/ML, 2ML IV PRN ×2 (11:30)
[2019-09-11] MEDS ORDERED: MEPERIDINE/PF 25MG/0.5ML IVPush PRN (11:30)
[2019-09-11] MEDS ORDERED: hydrALAzine 20 MG/ML, 1ML IV PRN (11:30)
[2019-09-11] MEDS ORDERED: FENTANYL PF 100 MCG/2ML IV PRN (11:30)
[2019-09-11] MEDS ORDERED: ONDANSETRON 2MG/ML, 2ML IVPush PRN (11:30)
[2019-09-11] MEDS ORDERED: ALBUTEROL SULFATE 2.5 MG/3 ML NPPB PRN (11:30)
[2019-09-11] MEDS ORDERED: PROMETHAZINE 25 MG/ML, 1ML IV PRN (11:30)
[2019-09-11] MEDS ORDERED: LABETALOL 5MG/ML, 20ML IV PRN (11:30)
[2019-09-11] MEDS ORDERED: OXYcodone 5 MG/5 ML ORAL.SOL UDC PO PRN (11:30)
[2019-09-11] MEDS ORDERED: KETOROLAC 30 MG/1 ML IV PRN (11:30)
[2019-09-11] MEDS ORDERED: METOCLOPRAMIDE 5 MG/ML, 2ML IV PRN (11:30)
[2019-09-11] MEDS ORDERED: HYDROmorphone 1 MG/ML, 1ML INJ IV PRN (11:30)
[2019-09-11] MEDS ORDERED: HYDROmorphone 1 MG/ML, 1ML INJ ONE (12:29)
[2019-09-11] MEDS: VANCOMYCIN 1,500 MG in SODIUM CHLORIDE 0.9% 250 ML IV SCH ×2 (13:15→23:54)
[2019-09-11 13:45] VITALS: BP 93/60
[2019-09-11] MEDS: AMPICILLIN/SULBACTAM 3 GM in SODIUM CHLORIDE 0.9% 100 ML IV SCH ×2 (17:23→22:54)
[2019-09-11 18:57] VITALS: BP 111/72
[2019-09-11] MEDS: KETOROLAC 30 MG/1 ML IVPush PRN (22:17)
[2019-09-12 01:05] VITALS: BP 105/64
[2019-09-12] MEDS: HYDROmorphone 2 MG/ML, 1ML IVPush PRN ×6 (01:25→23:06)
[2019-09-12] MEDS: AMPICILLIN/SULBACTAM 3 GM in SODIUM CHLORIDE 0.9% 100 ML IV SCH ×4 (04:49→23:06)
[2019-09-12] MEDS: KETOROLAC 30 MG/1 ML IVPush PRN (05:10)
[2019-09-12 06:10] LABS: BASOPHILS # (AUTO) 0.03 x10^3/uL (0-0.1); BASOPHILS % (AUTO) 1 % (0-1); EOSINOPHILS # (AUTO) 0.06 x10^3/uL (0-0.4); EOSINOPHILS % (AUTO) 2 % (1-7); LYMPHOCYTES # (AUTO) 1.21 x10^3/uL (1-3.4); LYMPHOCYTES % (AUTO) 28 % (22-44); MD NO; MEAN CORPUSCULAR HGB CONC 34.2 g/dL (33.2-36.2); MEAN CORPUSCULAR VOLUME 87.7 fL (81-97); MEAN PLATELET VOLUME 7.9 fL (7.4-10.4); MONOCYTES # (AUTO) 0.34 x10^3/uL (0.2-0.8); MONOCYTES % (AUTO) 8 % (2-9); NEUTROPHILS # (AUTO) 2.65 x10^3/uL (1.8-6.8); NEUTROPHILS % (AUTO) 62 % (42-75); PLATELET COUNT 196 x10^3/uL (130-400); RED BLOOD COUNT 3.65 x10^6/uL (4.38-5.82); RED CELL DISTRIBUTION WIDTH 13.7 % (9.4-14.8)
[2019-09-12 06:18] LABS: ANION GAP 6 mmol/L (5-15); CALCIUM 7.9 mg/dL (8.5-10.1); CHLORIDE 111 mmol/L (98-107)
[2019-09-12 06:21] LABS: CREATININE 0.53 mg/dL (0.7-1.3)
[2019-09-12 08:22] VITALS: BP 100/66
[2019-09-12] MEDS: NICOTINE 21 MG/24 HR PATCH.TD24 TD SCH (09:24)
[2019-09-12] MEDS: OxyconTIN ER 40 MG TAB.ER PO SCH ×3 (09:24→21:39)
[2019-09-12] MEDS: DIAZEPAM 5 MG TABLET PO PRN ×2 (11:29→23:54)
[2019-09-12] MEDS: VANCOMYCIN 1,500 MG in SODIUM CHLORIDE 0.9% 250 ML IV SCH ×2 (11:29→23:54)
[2019-09-12 15:09] VITALS: BP 103/82
[2019-09-12 19:08] VITALS: BP 102/59
[2019-09-13 00:23] VITALS: BP 107/66
[2019-09-13] MEDS: TEMAZEPAM 15 MG CAPSULE PO PRN (00:45)
[2019-09-13] MEDS: HYDROmorphone 2 MG/ML, 1ML IVPush PRN ×5 (03:12→20:32)
[2019-09-13] MEDS: AMPICILLIN/SULBACTAM 3 GM in SODIUM CHLORIDE 0.9% 100 ML IV SCH ×5 (05:10→23:05)
[2019-09-13 05:36] LABS: BASOPHILS # (AUTO) 0.02 x10^3/uL (0-0.1); BASOPHILS % (AUTO) 1 % (0-1); EOSINOPHILS # (AUTO) 0.07 x10^3/uL (0-0.4); EOSINOPHILS % (AUTO) 2 % (1-7); LYMPHOCYTES # (AUTO) 1.27 x10^3/uL (1-3.4); LYMPHOCYTES % (AUTO) 37 % (22-44); MD NO; MEAN CORPUSCULAR HEMOGLOBIN 29.4 pg (27.5-34.5); MEAN CORPUSCULAR HGB CONC 33.3 g/dL (33.2-36.2); MEAN CORPUSCULAR VOLUME 88.3 fL (81-97); MEAN PLATELET VOLUME 7.9 fL (7.4-10.4); MONOCYTES # (AUTO) 0.24 x10^3/uL (0.2-0.8); MONOCYTES % (AUTO) 7 % (2-9); NEUTROPHILS # (AUTO) 1.81 x10^3/uL (1.8-6.8); NEUTROPHILS % (AUTO) 53 % (42-75); PLATELET COUNT 229 x10^3/uL (130-400); RED BLOOD COUNT 4.02 x10^6/uL (4.38-5.82); RED CELL DISTRIBUTION WIDTH 13.8 % (9.4-14.8)
[2019-09-13 05:42] LABS: ANION GAP 4 mmol/L (5-15); CALCIUM 8.2 mg/dL (8.5-10.1); CHLORIDE 112 mmol/L (98-107)
[2019-09-13 05:54] LABS: CREATININE 0.44 mg/dL (0.7-1.3)
[2019-09-13 06:00] LABS: HCT (SEDRATE) 35.5 % (39.2-51.8)
[2019-09-13 07:35] VITALS: BP 116/75
[2019-09-13] MEDS: NICOTINE 21 MG/24 HR PATCH.TD24 TD SCH (09:14)
[2019-09-13] MEDS: OxyconTIN ER 40 MG TAB.ER PO SCH ×3 (09:14→20:30)
[2019-09-13] MEDS: VANCOMYCIN 1,500 MG in SODIUM CHLORIDE 0.9% 250 ML IV SCH (12:15)
[2019-09-13 12:44] VITALS: BP 94/58
[2019-09-13 16:50] VITALS: BP 114/70
[2019-09-13 18:50] VITALS: BP 97/64
[2019-09-14] MEDS: VANCOMYCIN 1,500 MG in SODIUM CHLORIDE 0.9% 250 ML IV SCH ×2 (00:02→12:26)
[2019-09-14] MEDS: HYDROmorphone 2 MG/ML, 1ML IVPush PRN ×10 (00:06→23:07)
[2019-09-14] MEDS: TEMAZEPAM 15 MG CAPSULE PO PRN (00:07)
[2019-09-14 00:51] VITALS: BP 116/76
[2019-09-14] MEDS: AMPICILLIN/SULBACTAM 3 GM in SODIUM CHLORIDE 0.9% 100 ML IV SCH ×4 (05:18→22:55)
[2019-09-14] MEDS: KETOROLAC 30 MG/1 ML IVPush PRN (05:26)
[2019-09-14] MEDS ORDERED: FENTANYL PF 250 MCG/5ML ONE (07:46)
[2019-09-14] MEDS ORDERED: MIDAZOLAM 1 MG/ML, 2ML ONE (07:46)
[2019-09-14] MEDS ORDERED: PROPOFOL 10 MG/ML, 20ML ONE ×2 (07:48→14:37)
[2019-09-14] MEDS ORDERED: ONDANSETRON 2MG/ML, 2ML ONE ×2 (07:53→14:37)
[2019-09-14] MEDS ORDERED: FENTANYL PF 100 MCG/2ML ONE (08:34)
[2019-09-14] MEDS ORDERED: HYDROmorphone 2 MG/ML, 1ML ONE (08:34)
[2019-09-14] MEDS ORDERED: OXYcodone 5 MG/5 ML ORAL.SOL UDC ONE (08:34)
[2019-09-14] MEDS: FENTANYL PF 100 MCG/2ML IV PRN ×2 (09:10→09:15)
[2019-09-14] MEDS ORDERED: MEPERIDINE/PF 25MG/ML,1ML ONE ×2 (09:29→09:35)
[2019-09-14] MEDS ORDERED: ACETAMINOPHEN 325 MG TABLET PO PRN (09:30)
[2019-09-14] MEDS ORDERED: LORazepam 2 MG/ML, 1ML IVPush PRN (09:30)
[2019-09-14] MEDS ORDERED: ONDANSETRON 2MG/ML, 2ML IV PRN (09:30)
[2019-09-14] MEDS ORDERED: hydrALAzine 20 MG/ML, 1ML IV PRN (09:30)
[2019-09-14] MEDS ORDERED: OXYcodone 5 MG/5 ML ORAL.SOL UDC PO PRN (09:30)
[2019-09-14] MEDS ORDERED: MEPERIDINE/PF 25MG/ML,1ML IVPush PRN (10:00)
[2019-09-14 11:00] VITALS: BP 123/74
[2019-09-14] MEDS: OxyconTIN ER 40 MG TAB.ER PO SCH ×3 (11:12→22:55)
[2019-09-14] MEDS: NICOTINE 21 MG/24 HR PATCH.TD24 TD SCH (11:13)
[2019-09-14 14:26] VITALS: BP 95/62
[2019-09-14] MEDS ORDERED: SUGAMMADEX 200 MG/2 ML IVPush ONE (14:37)
[2019-09-14] MEDS ORDERED: ROCURONIUM 10MG/ML,5ML ONE (14:37)
[2019-09-14 14:50] VITALS: BP 97/66
[2019-09-14 14:51] VITALS: BP 102/70
[2019-09-14 18:37] VITALS: BP 104/68
[2019-09-14] MEDS: DIAZEPAM 5 MG TABLET PO PRN (23:02)
[2019-09-15] MEDS: VANCOMYCIN 1,500 MG in SODIUM CHLORIDE 0.9% 250 ML IV SCH ×3 (00:03→12:00)
[2019-09-15 00:15] VITALS: BP 95/62
[2019-09-15] MEDS: HYDROmorphone 2 MG/ML, 1ML IVPush PRN ×6 (04:08→20:55)
[2019-09-15] MEDS: DIAZEPAM 5 MG TABLET PO PRN ×2 (04:32→20:01)
[2019-09-15 05:11] LABS: BASOPHILS # (AUTO) 0.05 x10^3/uL (0-0.1); BASOPHILS % (AUTO) 1 % (0-1); EOSINOPHILS # (AUTO) 0.05 x10^3/uL (0-0.4); EOSINOPHILS % (AUTO) 2 % (1-7); LYMPHOCYTES # (AUTO) 1.32 x10^3/uL (1-3.4); LYMPHOCYTES % (AUTO) 38 % (22-44); MD NO; MEAN CORPUSCULAR HEMOGLOBIN 29.7 pg (27.5-34.5); MEAN CORPUSCULAR HGB CONC 33.7 g/dL (33.2-36.2); MEAN CORPUSCULAR VOLUME 88.1 fL (81-97); MEAN PLATELET VOLUME 7.5 fL (7.4-10.4); MONOCYTES # (AUTO) 0.21 x10^3/uL (0.2-0.8); MONOCYTES % (AUTO) 6 % (2-9); NEUTROPHILS % (AUTO) 54 % (42-75); PLATELET COUNT 268 x10^3/uL (130-400); RED BLOOD COUNT 3.83 x10^6/uL (4.38-5.82); RED CELL DISTRIBUTION WIDTH 13.6 % (9.4-14.8)
[2019-09-15 05:23] LABS: ANION GAP 4 mmol/L (5-15); CALCIUM 8.1 mg/dL (8.5-10.1); CHLORIDE 110 mmol/L (98-107); CREATININE 0.52 mg/dL (0.7-1.3)
[2019-09-15 08:06] VITALS: BP 111/75
[2019-09-15] MEDS: NICOTINE 21 MG/24 HR PATCH.TD24 TD SCH (08:07)
[2019-09-15] MEDS: AMPICILLIN/SULBACTAM 3 GM in SODIUM CHLORIDE 0.9% 100 ML IV SCH ×3 (08:07→20:02)
[2019-09-15] MEDS: OxyconTIN ER 40 MG TAB.ER PO SCH ×3 (09:15→20:56)
[2019-09-15 10:57] LABS: HCT (SEDRATE) 33.8 % (39.2-51.8)
[2019-09-15] MEDS: KETOROLAC 30 MG/1 ML IVPush SCH ×3 (11:21→22:54)
[2019-09-15 14:17] VITALS: BP 96/56
[2019-09-15] MEDS: ENOXAPARIN 40 MG/0.4 ML SQ SCH (16:18)
[2019-09-15 16:20] VITALS: BP 128/65
[2019-09-15 18:38] VITALS: BP 98/62
[2019-09-15] MEDS: TEMAZEPAM 15 MG CAPSULE PO PRN (22:53)
[2019-09-16] MEDS: VANCOMYCIN 1,500 MG in SODIUM CHLORIDE 0.9% 250 ML IV SCH (00:02)
[2019-09-16] MEDS: HYDROmorphone 2 MG/ML, 1ML IVPush PRN ×7 (00:02→19:29)
[2019-09-16 01:07] VITALS: BP 152/88
[2019-09-16] MEDS: AMPICILLIN/SULBACTAM 3 GM in SODIUM CHLORIDE 0.9% 100 ML IV SCH ×2 (02:00→08:24)
[2019-09-16] MEDS: KETOROLAC 30 MG/1 ML IVPush SCH ×3 (06:31→17:54)
[2019-09-16 07:15] VITALS: BP 103/67
[2019-09-16 07:39] VITALS: BP 101/67
[2019-09-16] MEDS: NICOTINE 21 MG/24 HR PATCH.TD24 TD SCH (08:24)
[2019-09-16] MEDS: OxyconTIN ER 40 MG TAB.ER PO SCH ×3 (08:24→20:39)
[2019-09-16] MEDS: DIAZEPAM 5 MG TABLET PO PRN ×2 (09:10→20:39)
[2019-09-16] MEDS: AMOXICILLIN/CLAV 875-125MG TABLET PO SCH ×2 (10:01→20:39)
[2019-09-16] MEDS: DOXYCYCLINE 100MG TABLET PO SCH ×2 (10:01→20:39)
[2019-09-16 12:10] VITALS: BP 107/60
[2019-09-16] MEDS: ENOXAPARIN 40 MG/0.4 ML SQ SCH (16:18)
[2019-09-16 18:45] VITALS: BP 128/76
[2019-09-17] MEDS: KETOROLAC 30 MG/1 ML IVPush SCH ×4 (00:03→18:33)
[2019-09-17] MEDS: HYDROmorphone 2 MG/ML, 1ML IVPush PRN ×7 (00:05→19:53)
[2019-09-17 00:16] VITALS: BP 106/72
[2019-09-17 07:01] LABS: ALBUMIN 2.8 g/dL (3.4-5.0); ANION GAP 7 mmol/L (5-15); CALCIUM 8.3 mg/dL (8.5-10.1); CHLORIDE 108 mmol/L (98-107)
[2019-09-17 07:04] LABS: BASOPHILS # (AUTO) 0.08 x10^3/uL (0-0.1); BASOPHILS % (AUTO) 2 % (0-1); EOSINOPHILS # (AUTO) 0.05 x10^3/uL (0-0.4); EOSINOPHILS % (AUTO) 1 % (1-7); LYMPHOCYTES # (AUTO) 1.75 x10^3/uL (1-3.4); LYMPHOCYTES % (AUTO) 39 % (22-44); MD NO; MEAN CORPUSCULAR HEMOGLOBIN 29.4 pg (27.5-34.5); MEAN CORPUSCULAR HGB CONC 33.1 g/dL (33.2-36.2); MEAN PLATELET VOLUME 7.2 fL (7.4-10.4); MONOCYTES # (AUTO) 0.32 x10^3/uL (0.2-0.8); MONOCYTES % (AUTO) 7 % (2-9); NEUTROPHILS # (AUTO) 2.23 x10^3/uL (1.8-6.8); NEUTROPHILS % (AUTO) 50 % (42-75); PLATELET COUNT 292 x10^3/uL (130-400); RED BLOOD COUNT 3.92 x10^6/uL (4.38-5.82); RED CELL DISTRIBUTION WIDTH 13.8 % (9.4-14.8)
[2019-09-17 07:54] VITALS: BP 130/82
[2019-09-17] MEDS: OxyconTIN ER 40 MG TAB.ER PO SCH ×3 (08:20→21:05)
[2019-09-17] MEDS: AMOXICILLIN/CLAV 875-125MG TABLET PO SCH ×2 (08:20→21:05)
[2019-09-17] MEDS: DOXYCYCLINE 100MG TABLET PO SCH ×2 (08:20→21:05)
[2019-09-17] MEDS: DIAZEPAM 5 MG TABLET PO PRN (08:21)
[2019-09-17] MEDS: NICOTINE 21 MG/24 HR PATCH.TD24 TD SCH (08:21)
[2019-09-17] MEDS: ACETAMINOPHEN 500 MG TABLET PO SCH ×3 (12:05→22:18)
[2019-09-17 13:41] VITALS: BP 112/71
[2019-09-17] MEDS: ENOXAPARIN 40 MG/0.4 ML SQ SCH (16:30)
[2019-09-17 18:37] VITALS: BP 113/79
[2019-09-17 22:15] VITALS: BP 96/60
[2019-09-17] MEDS: TEMAZEPAM 15 MG CAPSULE PO PRN (22:18)
[2019-09-18] MEDS: HYDROmorphone 2 MG/ML, 1ML IVPush PRN ×4 (00:11→10:09)
[2019-09-18] MEDS: KETOROLAC 30 MG/1 ML IVPush SCH ×2 (00:11→06:10)
[2019-09-18 01:15] VITALS: BP 95/63
[2019-09-18] MEDS: ACETAMINOPHEN 500 MG TABLET PO SCH ×2 (04:05→08:51)
[2019-09-18 06:46] VITALS: BP 102/66
[2019-09-18] MEDS: OxyconTIN ER 40 MG TAB.ER PO SCH (08:51)
[2019-09-18] MEDS: DOXYCYCLINE 100MG TABLET PO SCH (08:51)
[2019-09-18] MEDS: NICOTINE 21 MG/24 HR PATCH.TD24 TD SCH (08:51)
[2019-09-18] MEDS: AMOXICILLIN/CLAV 875-125MG TABLET PO SCH (08:52)
[2019-09-18] MEDS: DIAZEPAM 5 MG TABLET PO PRN (08:52)
== END 2019-09-18 10:56 | disposition home or self-care (01) | DRG 857 ==
LOC: ED 20:05 → EDIP 20:13 → ED 20:25 → 3N 21:31
PROVIDERS: ADMIT Family Medicine; ATTEND Family Medicine
PROC: 0QB60ZZ Excision of Right Upper Femur, Open Approach (ICD-10-PCS; principal; 2019-09-11 11:00)
PROC: 0QB60ZZ Excision of Right Upper Femur, Open Approach (ICD-10-PCS; 2019-09-14)
DX: T81.42XA Infection following a procedure, deep incisional surgical site, initial encounter (principal); F11.23 Opioid dependence with withdrawal; G82.20 Paraplegia, unspecified; L02.415 Cutaneous abscess of right lower limb; M84.459A Pathological fracture, hip, unspecified, initial encounter for fracture; E87.6 Hypokalemia; D64.9 Anemia, unspecified; Z88.2 Allergy status to sulfonamides; G89.29 Other chronic pain; Z80.0 Family history of malignant neoplasm of digestive organs; Z87.891 Personal history of nicotine dependence; Z89.512 Acquired absence of left leg below knee; Z96.649 Presence of unspecified artificial hip joint; R33.9 Retention of urine, unspecified; Y83.8 Other surgical procedures as the cause of abnormal reaction of the patient, or of later complication, without mention of misadventure at the time of the procedure; Y92.89 Other specified places as the place of occurrence of the external cause
CPT/HCPCS: 36415; 80048; 80202; 82040; 84145; 85025; 85651; 86140; 87040; 87070; 87075; 87176; 87205; 96361; 96374; 96376; G0378; J0295; J0690; J1100; J1170; J1885; J2250; J2405; J2543; J2704; J3010; J3370; J0330; J2175; J7030; J7050